=== PATIENT | female | born 1975 | race Caucasian/White ===

== ENCOUNTER 2023-07-21 04:05 | Emergency (ER) | payer OTHER ==
[~2023-07-21] VITALS: Ht 172.7 cm; Wt 68.0 kg
[2023-07-21 04:18] VITALS: BP 119/83; TEMP 98.1; O2SAT 98
[2023-07-21] MEDS ORDERED: HYDR15CR41 TP (04:35)
== END 2023-07-21 04:38 | disposition home or self-care (01) ==
LOC: ER 04:23
DX: S40.862A Insect bite (nonvenomous) of left upper arm, initial encounter (principal); S40.861A Insect bite (nonvenomous) of right upper arm, initial encounter; S30.860A Insect bite (nonvenomous) of lower back and pelvis, initial encounter; W57.XXXA Bitten or stung by nonvenomous insect and other nonvenomous arthropods, initial encounter; Y93.89 Activity, other specified; Y92.89 Other specified places as the place of occurrence of the external cause; Y99.8 Other external cause status